=== PATIENT | female | born 1975 | race Two or more races ===

== ENCOUNTER 2025-04-29 07:02 | Inpatient (IN) | payer OTHER ==
[~2025-04-29] VITALS: Ht 152.4 cm; Wt 72.6 kg
--- NOTE | 2025-04-29 07:33 | NUR ---
SE RECIBE PTE FEMINA ALERTA Y ORIENTADA X 3, REFEIRE SANGRADO NASAL. SE OBSERVA ACTIVO AL MOMENTO. SE MIDEN SIGNOS VITALES B/P:210/120 MANUAL. SE NOTIFICA A DRA. COSTA Y SE COLOCA EN PEYMAN. SE PROCEDE A REALIZAR EKG.
[2025-04-29] MEDS ORDERED: DILTIAZEM HCL 125MG/25ML VIAL IV STA (07:51)
[2025-04-29] MEDS ORDERED: 0.9 % SODIUM CHLORIDE 1,000 ML IV SCH (08:00)
[2025-04-29] MEDS ORDERED: DILTIAZEM HCL 125 MG in 0.9 % SODIUM CHLORIDE 100 ML IV SCH (08:00)
[2025-04-29] MEDS ORDERED: DILTIAZEM HCL 25 MG/5 ML VIAL IV ONE (08:08)
[2025-04-29 08:18] LABS: BASO % 0.3 % (0.1-1.2); EOS # 0.04 (0.04-0.54); EOS % 0.7 % (0.7-7.0); LYMPH # 1.15 (1.18-3.74); LYMPH % 18.8 % (19.3-53.1); MEAN PLATELET VOLUME 10.60 fl (9.4-12.4); MONO # 0.34 (0.24-0.82); MONO % 5.6 % (4.7-12.5); NEUT # 4.55 (1.56-6.13); NEUT % 74.3 % (34.0-71.1); RED CELL DISTRIBUTION WIDTH 14.4 % (11.6-14.4)
--- NOTE | 2025-04-29 08:33 | NUR ---
PTE. EVALUADO POR LA DRA. MURGUIA, PRESENTANDO HBP Y SANGRADO NASAL, SE UBICA EN SECCION K#[id number] SE CONECTA A MOINITOR CARDIACO, OXYMETRIA DE PULSO Y SE KARRIE MUESTRAS DE GENESIS BAJO MEDIDAS ASEPTICAS, MEDICACION JAYLAN ORDEN MEDICA Y SE ORIENTA SOBRE PROCEDIMIENTOS REALIZADOS Y SEGUIMIENTO DE TRATAMIENTO SUSANA ESTADIA EN DEPARTAMENTO DE CHANCE DE EMERGENCIA. CLIENTE ALERTA Y ORIENTADO SE MANTIENE EN OBSERVACION POR CAMBIOS DENTYRO DE SERRANO CONDICION.
[2025-04-29 08:47] LABS: ERYTHROCYTE SEDIMENTATION RATE 23 mm/hr (0-20)
[2025-04-29 08:49] LABS: ALT/SGPT 73.0 U/L (12-78); AST/SGOT 51.0 U/L (15-37); BILIRUBIN TOTAL 0.49 mg/dL (0.3-1.2); BUN CREA RATIO 16.0 (7.0-25.0); CREATININE SERUM 0.62 mg/dL (0.55-1.02); GFR 102.74; GLOBULINA 4.0 G/DL (2.4-3.5); GLUCOSE FASTING 120.0 mg/dL (65-100); OSMOLALITY SERUM 283.0 MOSM/KG (275-295); TSH 1.81 uIU/mL (0.358-3.74)
[2025-04-29 08:53] LABS: D DIMER 0.26 MG/L
[2025-04-29] MEDS ORDERED: LABETALOL HCL 200 MG/40 ML VIAL IV STA (08:54)
[2025-04-29] MEDS ORDERED: LABETALOL HCL 100 MG/20 ML ML ONE (09:11)
[2025-04-29 09:50] LABS: INR 0.98
[2025-04-29 11:03] LABS: URINE APPEARANCE Cloudy; URINE BILIRRUBIN Negative (NEGATIVE); URINE BLOOD NHT; URINE COLOR Yellow; URINE GLUCOSE Negative (NEGATIVE); URINE KETONE Negative (NEGATIVE); URINE LEUKOCYTE Negative; URINE NITRATE Negative; URINE PROTEIN Trace (NEGATIVE); URINE UROBILINOGEN 0.2 E.U./dl
[2025-04-29 11:08] LABS: URINE BACTERIA 61.1 uL (0.0-1933); URINE EPITHELIAL CELLS 8.7 uL (0.0-38.8); URINE RBC 10.9 uL (0.0-20.8); URINE WBC 2.0 uL (0.0-23.2)
[2025-04-29 11:18] LABS: URINE CAST 0.43 uL (0.0-1.40)
[2025-04-29] MEDS ORDERED: CLEVIDIPINE BUTYRATE 100 ML IV SCH (14:45)
[2025-04-29] MEDS ORDERED: ONDANSETRON HCL 4 MG in 0.9 % SODIUM CHLORIDE 50 ML IV PRN (17:30)
[2025-04-29] MEDS ORDERED: ACETAMINOPHEN 325 MG TABLET PO PRN (17:30)
[2025-04-29 18:34] VITALS: BP 141/60; O2SAT 98
[2025-04-29 19:49] VITALS: BP 160/70; O2SAT 99
[2025-04-29 20:52] VITALS: BP 151/66; O2SAT 98
[2025-04-30] VITALS (16 sets, daily range): BP systolic 127–178; BP diastolic 60–90; O2SAT 95–100
[2025-04-30] MEDS ORDERED: ACETAMINOPHEN 500 MG GEL..CAP PO ONE (00:52)
[2025-04-30] MEDS ORDERED: ACETAMINOPHEN 500 MG GEL..CAP PO PRN (06:15)
[2025-04-30 09:26] LABS: BUN CREA RATIO 19.0 (7.0-25.0); CHOL HDL RATIO 3.4 (0-5.0); CREATININE SERUM 0.43 mg/dL (0.55-1.02); GFR 156.72; GLUCOSE FASTING 122.0 mg/dL (65-100); HDL 47.0 mg/dl (40-60); LDL 90.0 mg/dl (0-130); OSMOLALITY SERUM 285.0 MOSM/KG (275-295); VLDL 20.0 (0-39)
[2025-04-30] MEDS ORDERED: LOSARTAN POTASSIUM 50 MG TABLET PO SCH (11:00)
[2025-04-30] MEDS ORDERED: METOPROLOL SUCCINATE 50 MG TAB.SR.24H PO SCH (11:09)
[2025-04-30] MEDS ORDERED: FAMOTIDINE/PF 20 MG/2 ML VIAL IV SCH (12:00)
[2025-04-30] MEDS ORDERED: AMLODIPINE BESYLATE 5 MG TABLET PO SCH (21:00)
[2025-05-01] VITALS (8 sets, daily range): BP systolic 135–168; BP diastolic 68–95; O2SAT 98–100
[2025-05-01] MEDS ORDERED: HYDROCHLOROTHIAZIDE 12.5 MG CAPSULE PO SCH (11:21)
[2025-05-01] MEDS ORDERED: FAMOTIDINE/PF 20 MG/2 ML VIAL IV SCH (21:00)
[2025-05-01] MEDS ORDERED: AMLODIPINE BESYLATE 10 MG TABLET PO SCH (21:00)
[2025-05-02 04:00] VITALS: BP 135/86; O2SAT 99
[2025-05-02] MEDS ORDERED: LOSARTAN POTASSIUM 100 MG TABLET PO SCH (09:00)
[2025-05-02 09:07] VITALS: BP 148/84; O2SAT 98
== END 2025-05-02 15:10 | disposition home or self-care (01) | DRG 305 ==
LOC: ER 07:02 → ICU-2 17:26 → ICU 05-01 02:30 → MEDI 05-02 05:32
PROVIDERS: General Practice; Physician Assistant Medical; ADMIT Student in an Organized Health Care Education/Training Program; ATTEND Student in an Organized Health Care Education/Training Program
PROC: BW28ZZZ Computerized Tomography (CT Scan) of Head (ICD-10-PCS; 2025-04-29)
PROC: B246ZZZ Ultrasonography of Right and Left Heart (ICD-10-PCS; 2025-04-30)
PROC: 4A12X4Z Monitoring of Cardiac Electrical Activity, External Approach (ICD-10-PCS; principal; 2025-05-02)
DX: I16.1 Hypertensive emergency (principal); Z91.148 Patient's other noncompliance with medication regimen for other reason; I10 Essential (primary) hypertension